=== PATIENT | female | born 1970 | race Hispanic/Latino ===

== ENCOUNTER 2017-12-09 20:20 | Emergency (ER) | payer SELFPAY ==
[2017-12-09 22:22] LABS: HCG Qualitative,Urine Negative (Negative)
--- NOTE | 2017-12-09 23:34 | XRay Report ---
FINAL REPORT EXAM: XR FOOT 3+V LT HISTORY: left foot pain TECHNIQUE: Frontal, lateral, oblique views left foot Comparison: None FINDINGS: There is hallux valgus deformity of the great toe. There appears to be degenerative change of the great toe metatarsophalangeal joint with joint space loss and degenerative change of the tarsal metatarsal joint of the great toe. There is a possible small focus erosive change with sclerotic margins along the lateral aspect of the proximal articular surface of the distal phalanx of the great toe. There is no evidence of fracture or subluxation. There is a plantar calcaneal spur. There appears to be edema of the distal leg and foot. IMPRESSION: 1. Hallux valgus deformity great toe with evidence of degenerative change great toe metatarsophalangeal joint. 2. Possible erosive change with sclerotic margin involving the proximal aspect of the distal phalanx of the great toe. This can be seen with gout. 3. No definite evidence of fracture or subluxation. 4. Plantar calcaneal spur. 5. Appearance of edema of the distal leg and foot.
--- NOTE | 2017-12-09 23:36 | XRay Report ---
FINAL REPORT EXAM: XR KNEE 3V LT HISTORY: left knee pain TECHNIQUE: X-ray left knee, three views Comparison: None FINDINGS: There is degenerative change of the patellofemoral joint with joint space loss and osteophyte formation. There appears to be degenerative change of the lateral compartment of the tibiofemoral joint with osteophyte formation. There is no evidence of fracture or subluxation. There there is a possible effusion in the suprapatellar pouch. IMPRESSION: 1. Degenerative change tibiofemoral and patellofemoral joints. 2. No evidence of fracture or subluxation. 3. Possible joint effusion in the suprapatellar pouch. If further imaging is required, MRI may be helpful.
--- NOTE | 2017-12-10 02:27 | Emergency Department Report ---
ED Extremity Problem HPI - General Chief complaint: Extremity Injury, Lower Stated complaint: KNEE/FOOT PAIN Time Seen by Provider: 12/10/17 02:20 Source: patient Mode of arrival: Ambulatory Limitations: No Limitations - History of Present Illness Initial comments: 47-year-old -[place] female with a past medical history of hypertension comes in complaining of left foot pain that she's had for months. Patient denies any injuries. Patient admits to chills over several days. She is denies any fever she denies any known injury. 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 She reports that she wears slip resistant black shoes. Patient reports last dose of pain medicine was yesterday. She complains of pain on the left lateral foot and less medial great toe. MD Complaint: extremity pain -: month(s) Location: left, lower extremity -: Yes arthralgia, No fever, No associated dyspnea, No associated chest pain Radiation: none Severity scale (0 -10): 10 (foot) Quality: aching, constant Consistency: constant Improves with: nothing Worsens with: walking Associated Symptoms: denies other symptoms - Related Data Home Medications Medication Instructions Recorded Confirmed Last Taken Enalapril Maleate 10 mg PO DAILY 12/09/17 12/09/17 Unknown Previous Rx's Medication Instructions Recorded Last Taken Type Amoxicillin [Trimox CAP] 500 mg PO Q8H #30 capsule 12/10/17 Unknown Rx Ibuprofen [Motrin 600 MG tab] 600 mg PO Q8H #30 tablet 12/10/17 Unknown Rx Allergies Allergy/AdvReac Type Severity Reaction Status Date / Time No Known Allergies Allergy Unverified 12/09/17 21:35 ED Review of Systems ROS: Stated complaint: KNEE/FOOT PAIN Other details as noted in HPI Comment: All other systems reviewed and negative Constitutional: chills Musculoskeletal: arthralgia (left foot) ED Past Medical Hx - Past Medical History Hx Hypertension: Yes - Surgical History Past Surgical History?: No - Social History Smoking Status: Never Smoker Substance Use Type: None - Medications Home Medications: Home Medications Medication Instructions Recorded Confirmed Last Taken Type Enalapril Maleate 10 mg PO DAILY 12/09/17 12/09/17 Unknown History Amoxicillin [Trimox CAP] 500 mg PO Q8H #30 capsule 12/10/17 Unknown Rx Ibuprofen [Motrin 600 MG tab] 600 mg PO Q8H #30 tablet 12/10/17 Unknown Rx ED Physical Exam - General Limitations: No Limitations General appearance: alert, in no apparent distress - Head Head exam: Present: atraumatic, normocephalic - Eye Eye exam: Present: EOMI - ENT ENT exam: Present: mucous membranes moist - Expanded Lower Extremity Exam Left Foot/Toe exam: Present: tenderness. Absent: laceration, ecchymosis, deformity, erythema Neuro vascular tendon exam: Present: no vascular compromise. Absent: abnormal cap refill - Neurological Exam Neurological exam: Present: alert, oriented X3 - Psychiatric Psychiatric exam: Present: normal affect, normal mood - Expanded Skin Exam Expanded Type of lesion: Present: other (callus on the left lateral foot, open dry wound to the left medial great toe) Distribution of rash: LLE Description of rash: Present: tenderness ED Course Vital Signs 12/09/17 21:31 Temperature 97.8 F Pulse Rate 68 Respiratory 16 Rate Blood Pressure 114/77 O2 Sat by Pulse 100 Oximetry ED Medical Decision Making - Radiology Data Radiology results: report reviewed, image reviewed FINAL REPORT EXAM: XR FOOT 3+V LT HISTORY: left foot pain TECHNIQUE: Frontal, lateral, oblique views left foot Comparison: None FINDINGS: There is hallux valgus deformity of the great toe. There appears to be degenerative change of the great toe metatarsophalangeal joint with joint space loss and degenerative change of the tarsal metatarsal joint of the great toe. There is a possible small focus erosive change with sclerotic margins along the lateral aspect of the proximal articular surface of the distal phalanx of the great toe. There is no evidence of fracture or subluxation. There is a plantar calcaneal spur. There appears to be edema of the distal leg and foot. IMPRESSION: 1. Hallux valgus deformity great toe with evidence of degenerative change great toe metatarsophalangeal joint. 2. Possible erosive change with sclerotic margin involving the proximal aspect of the distal phalanx of the great toe. This can be seen with gout. 3. No definite evidence of fracture or subluxation. 4. Plantar calcaneal spur. 5. Appearance of edema of the distal leg and foot. Transcribed By: ED Dictated By: TI SORAES MD Electronically Authenticated By: TI SOARES MD Signed Date/Time: 12/09/172332 DD/ 32 TD/TT: 12/09/172332 Critical care attestation.: If time is entered above; I have spent that time in minutes in the direct care of this critically ill patient, excluding procedure time. ED Disposition Clinical Impression: Calcaneal spur, left foot, Callus of foot Open wound of great toe Qualifiers: Encounter type: initial encounter Laterality: left Qualified Code(s): S91.102A - Unspecified open wound of left great toe without damage to nail, initial encounter Disposition: TO HOME OR SELFCARE Is pt being admited?: No Does the pt Need Aspirin: No Condition: Stable Instructions: Pressure Ulcer (ED) Additional Instructions: Complete antibiotics as prescribed. Pain medication as needed. Follow-up with podiatry I have listed their information below. Prescriptions: Amoxicillin [Trimox CAP] 500 mg PO Q8H #30 capsule Ibuprofen [Motrin 600 MG tab] 600 mg PO Q8H #30 tablet Referrals: PRIMARY CAREMD [Primary Care Provider] - 3-5 Days KOBE SIMS MD [Staff Physician] - 3-5 Days RIK BRAGG DPM [Staff Physician] - 3-5 Days UMA RAY DPM [Referring] - 3-5 Days Forms: Work/School Release Form(ED)
[2017-12-10] MEDS ORDERED: MOTRIN PO ONE (02:35)
[2017-12-10 02:47] VITALS: BP 120/80
== END 2017-12-10 02:52 | disposition home or self-care (01) ==
LOC: ED 20:20
DX: S91.102A Unspecified open wound of left great toe without damage to nail, initial encounter (principal); M77.32 Calcaneal spur, left foot; L84 Corns and callosities; I10 Essential (primary) hypertension; X50.1XXA Overexertion from prolonged static or awkward postures, initial encounter; Y93.G3 Activity, cooking and baking; Y99.0 Civilian activity done for income or pay; Y92.69 Other specified industrial and construction area as the place of occurrence of the external cause
CPT/HCPCS: 81025

== ENCOUNTER 2017-12-14 01:04 | Emergency (ER) | payer SELFPAY ==
[2017-12-14 01:23] VITALS: BP 111/76
--- NOTE | 2017-12-14 04:43 | Emergency Department Report ---
ED Lower Extremity HPI - General Chief Complaint: Extremity Problem,Nontraumatic Stated Complaint: LT KNEE AND FOOT PAIN Time Seen by Provider: 12/14/17 04:39 Source: patient Mode of arrival: Ambulatory Limitations: No Limitations - History of Present Illness Initial Comments: Patient presents for acute on chronic knee and leg pain since 07/25 aching exacerbated by completing work duties patient works 8-10 hours on feet daily yesterday complaining of left knee pain left great toe pain history of hallux valgus history of knee arthritis denies new injury fall or trauma patient not take any NSAIDs at this time pain described as 07/25 aching MD Complaint: knee injury, foot injury Onset/Timin -: year(s) Injury: Knee: Left (knee pain and swelling ), Toes: Left (Hallux valgus ) Type of Injury: other (osteoarthritis ) Place: home Severity: moderate Severity scale (0 -10): 4 Improves With: NSAID Worsens With: weight bearing, movement, palpation Associated Symptoms: able to partially bear weight - Related Data Home Medications Medication Instructions Recorded Confirmed Last Taken Enalapril Maleate 10 mg PO DAILY 12/09/17 12/09/17 Unknown Previous Rx's Medication Instructions Recorded Last Taken Type Amoxicillin [Trimox CAP] 500 mg PO Q8H #30 capsule 12/10/17 Unknown Rx Ibuprofen [Motrin 600 MG tab] 600 mg PO Q8H #30 tablet 12/10/17 Unknown Rx Cyclobenzaprine [Flexeril] 10 mg PO TID PRN #20 tablet 12/14/17 Unknown Rx Menthol/Camphor [[place] 18 gm TP TID PRN #1 tube 12/14/17 Unknown Rx Ointment] Naproxen [Naprosyn] 500 mg PO BID #30 tablet 12/14/17 Unknown Rx Allergies Allergy/AdvReac Type Severity Reaction Status Date / Time No Known Allergies Allergy Unverified 12/09/17 21:35 ED Review of Systems ROS: Stated complaint: LT KNEE AND FOOT PAIN Other details as noted in HPI Constitutional: denies: chills, fever Eyes: denies: eye pain, eye discharge, vision change ENT: denies: ear pain, throat pain Respiratory: denies: cough, shortness of breath, wheezing Cardiovascular: denies: chest pain, palpitations Endocrine: no symptoms reported Gastrointestinal: denies: abdominal pain, nausea, diarrhea Genitourinary: denies: urgency, dysuria, discharge Musculoskeletal: joint swelling, arthralgia, myalgia. denies: back pain Skin: denies: rash, lesions Neurological: denies: headache, weakness, paresthesias Psychiatric: denies: anxiety, depression Hematological/Lymphatic: denies: easy bleeding, easy bruising ED Past Medical Hx - Past Medical History Hx Hypertension: Yes - Surgical History Past Surgical History?: No - Social History Smoking Status: Never Smoker Substance Use Type: None - Medications Home Medications: Home Medications Medication Instructions Recorded Confirmed Last Taken Type Enalapril Maleate 10 mg PO DAILY 12/09/17 12/09/17 Unknown History Amoxicillin [Trimox CAP] 500 mg PO Q8H #30 capsule 12/10/17 Unknown Rx Ibuprofen [Motrin 600 MG tab] 600 mg PO Q8H #30 tablet 12/10/17 Unknown Rx Cyclobenzaprine [Flexeril] 10 mg PO TID PRN #20 tablet 12/14/17 Unknown Rx Menthol/Camphor [[place] 18 gm TP TID PRN #1 tube 12/14/17 Unknown Rx Ointment] Naproxen [Naprosyn] 500 mg PO BID #30 tablet 12/14/17 Unknown Rx ED Physical Exam - General Limitations: No Limitations General appearance: alert, in no apparent distress - Head Head exam: Present: atraumatic, normocephalic - Eye Eye exam: Present: normal appearance - ENT ENT exam: Present: mucous membranes moist - Neck Neck exam: Present: normal inspection - Respiratory Respiratory exam: Present: normal lung sounds bilaterally. Absent: respiratory distress - Cardiovascular Cardiovascular Exam: Present: regular rate, normal rhythm. Absent: systolic murmur, diastolic murmur, rubs, gallop - GI/Abdominal GI/Abdominal exam: Present: soft, normal bowel sounds - Rectal Rectal exam: Present: deferred - Extremities Exam Extremities exam: Present: tenderness, normal capillary refill, pedal edema, joint swelling, calf tenderness - Expanded Lower Extremity Exam Left Knee exam: Present: normal inspection, tenderness, swelling, abrasion, laceration, ecchymosis, pain w/ pronation/supination. Absent: deformity, crepidus, dislocation, erythema, effusion, posterior draw sign, pain/laxity with valgus, pain/laxity with varus, full knee extension Lower Leg exam: Present: tenderness, swelling. Absent: abrasion, laceration, deformity, crepidus, dislocation, erythema, palpable cord, Chauncey's sign Ankle exam: Present: normal inspection, full ROM, anterior draw sign. Absent: tenderness, swelling, abrasion, laceration, ecchymosis, deformity, crepidus, dislocation, erythema Foot/Toe exam: Present: full ROM. Absent: swelling, abrasion, laceration, ecchymosis, deformity Neuro vascular tendon exam: Present: no vascular compromise. Absent: pulse deficit, abnormal cap refill, motor deficit, sensory deficit, tendon deficit, extremity cold to touch, pallor, abnormal 2-point discrimination, decreased fine /light touch, foot drop, peroneal nerve deficit, significant pain with passive ROM of distal joint Gait: Positive: observed and normal - Back Exam Back exam: Present: normal inspection, muscle spasm, paraspinal tenderness, vertebral tenderness. Absent: full ROM, tenderness, CVA tenderness (R), CVA tenderness (L) - Expanded Back Exam Expanded Back exam: Absent: saddle anesthesia Back exam: Sciatic Notch Tenderness: Left, Positive Straight Leg Raise: Left, Negative Straight Leg Raising: Left - Neurological Exam Neurological exam: Present: alert, altered, oriented X3, normal gait. Absent: CN II-XII intact, abnormal gait, motor sensory deficit, reflexes normal - Psychiatric Psychiatric exam: Present: normal affect, normal mood, depressed - Skin Skin exam: Present: warm, dry, intact, normal color. Absent: rash ED Course Vital Signs 12/14/17 01:18 Temperature 97.8 F Pulse Rate 70 Respiratory 16 Rate Blood Pressure 111/76 O2 Sat by Pulse 100 Oximetry Critical care attestation.: If time is entered above; I have spent that time in minutes in the direct care of this critically ill patient, excluding procedure time. ED Disposition Clinical Impression: Lower extremity pain, anterior Qualifiers: Laterality: right Qualified Code(s): M79.604 - Pain in right leg Disposition: TO HOME OR SELFCARE Is pt being admited?: No Does the pt Need Aspirin: No Condition: Good Instructions: Lumbar Radiculopathy (ED), Arthralgia (ED) Prescriptions: Cyclobenzaprine [Flexeril] 10 mg PO TID PRN #20 tablet PRN Reason: Muscle Spasm Menthol/Camphor [[place] Ointment] 18 gm TP TID PRN #1 tube PRN Reason: pain Naproxen [Naprosyn] 500 mg PO BID #30 tablet Referrals: [facility] [Outside] - 3-5 Days Forms: Work/School Release Form(ED) Time of Disposition: 04:57
== END 2017-12-14 05:20 | disposition home or self-care (01) ==
LOC: ED 01:04
DX: M79.604 Pain in right leg (principal); I10 Essential (primary) hypertension
CPT/HCPCS: 99282